=== PATIENT | male | born 1985 | race Caucasian/White ===

== ENCOUNTER 2018-11-16 10:39 | Outpatient (CLI) | payer MEDICARE, OTHER ==
[2015-04-29 21:30] VITALS: BP 101/60
[2018-11-16 10:55] LABS: BASOPHILS % 0.6 % (0.0-1.5); NEUTROPHILS # 2.3 # k/uL (1.4-7.7); eGFR (Non-African) > 60
== END 2018-11-16 10:41 ==
LOC: LAB 10:39
PROVIDERS: ATTEND Family Medicine
DX: D64.9 Anemia, unspecified (principal); E56.9 Vitamin deficiency, unspecified; G40.909 Epilepsy, unspecified, not intractable, without status epilepticus
CPT/HCPCS: 80053; 85025

== ENCOUNTER 2018-12-17 20:40 | Outpatient (CLI) | payer MEDICARE, OTHER ==
[2015-04-29 21:30] VITALS: BP 101/60
== END 2018-12-17 20:43 ==
LOC: LAB 20:40
PROVIDERS: ATTEND Family Medicine
DX: S11.90XA Unspecified open wound of unspecified part of neck, initial encounter (principal); X58.XXXA Exposure to other specified factors, initial encounter
CPT/HCPCS: 87070

== ENCOUNTER 2019-03-15 06:50 | Outpatient (CLI) | payer MEDICARE, OTHER ==
[2015-04-29 21:30] VITALS: BP 101/60
[2019-03-15 08:36] LABS: BASOPHILS % 0.5 % (0.0-1.5); NEUTROPHILS # 2.8 # k/uL (1.4-7.7)
[2019-03-15 08:37] LABS: eGFR (Non-African) > 60
== END 2019-03-15 06:55 ==
LOC: LAB 06:50
PROVIDERS: ATTEND Family Medicine
DX: K02.9 Dental caries, unspecified (principal)
CPT/HCPCS: 36415; 80048; 85025; 85610; 85730; P9603